=== PATIENT | female | born 1970 | race Caucasian/White ===

== ENCOUNTER 2018-02-23 10:31 | Outpatient (CLI) | payer OTHER ==
[~2018-02-23 10:31] MED LIST: EPIPEN0.3 MG/0.3 IM
== END 2018-02-23 10:39 | disposition home or self-care (01) ==
LOC: MAMO-SONO 10:31 → MAMO 607 10:45
DX: Z12.31 Encounter for screening mammogram for malignant neoplasm of breast (principal); N64.89 Other specified disorders of breast

== ENCOUNTER 2018-08-11 07:57 | Day surgery (SDC) | payer OTHER | END 2018-08-11 15:55 | disposition home or self-care (01) | LOC: CIR.AMB 07:57 | DX: N92.1 Excessive and frequent menstruation with irregular cycle (principal) ==

== ENCOUNTER 2022-10-17 10:14 | Outpatient (CLI) | payer OTHER | END 2022-10-17 10:25 | disposition home or self-care (01) | LOC: MAMO-SONO 10:14 | PROVIDERS: ATTEND Obstetrics & Gynecology | DX: N60.11 Diffuse cystic mastopathy of right breast (principal); N91.1 Secondary amenorrhea ==